=== PATIENT | male | born 1960 | race Caucasian/White ===

== ENCOUNTER 2022-04-15 19:05 | Outpatient (CLI) | payer OTHER | END 2022-04-15 19:06 | disposition critical access hospital (66) | LOC: EMS 19:05 | DX: M54.2 Cervicalgia (principal); V49.40XA Driver injured in collision with unspecified motor vehicles in traffic accident, initial encounter; Y92.413 State road as the place of occurrence of the external cause | CPT/HCPCS: A0425; A0427 ==

== ENCOUNTER 2022-04-15 19:39 | Emergency (ER) | payer OTHER ==
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
[2022-04-15 20:38] LABS: BASOPHILS % (AUTO) 0.5 %; EOSINOPHILS # (AUTO) 0.1 10^3/uL (0.0-0.7); EOSINOPHILS % (AUTO) 1.5 %; HCT - HEMATOCRIT 43.5 % (42.0-52.0); HGB - HEMOGLOBIN 14.1 g/dL (14.0-18.0); LYMPHOCYTES # (AUTO) 2.2 10^3/uL (1.5-3.5); LYMPHOCYTES % (AUTO) 26.2 %; MEAN CORPUSCULAR HEMOGLOBIN 29.1 pg (27.0-31.0); MEAN CORPUSCULAR HGB CONC 32.4 g/dL (32.0-36.0); MEAN CORPUSCULAR VOLUME 89.9 fL (80.0-94.0); MEAN PLATELET VOLUME 9.1 fL (7.4-11.4); MONOCYTES # (AUTO) 0.6 10^3/uL (0.0-1.0); MONOCYTES % (AUTO) 7.5 %; NEUTROPHILS # (AUTO) 5.5 10^3/uL (1.5-6.6); NEUTROPHILS % (AUTO) 63.6 %; PLT - PLATELET COUNT 198 10^3/uL (130-450); RED BLOOD COUNT 4.84 10^6/uL (4.70-6.10); RED CELL DISTRIBUTION WIDTH 13.2 % (12.0-15.0); WHITE BLOOD COUNT 8.6 x10^3/uL (4.8-10.8)
[2022-04-15 20:47] LABS: ALBUMIN 3.8 g/dL (3.2-5.5); ALBUMIN/GLOBULIN RATIO 1.1 (1.0-2.2); BILIRUBIN,TOTAL 0.5 mg/dL (0.2-1.0); CALCIUM 8.8 mg/dL (8.5-10.3); CREATININE 0.9 mg/dL (0.6-1.2); POTASSIUM 3.5 mmol/L (3.5-5.0); TOTAL PROTEIN 7.4 g/dL (6.7-8.2)
[2022-04-15] MEDS ORDERED: iohexoL-300 100 ML VIAL ONE (21:33)
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
[2022-04-16] MEDS ORDERED: MORPHINE 2 MG/ML CARPUJECT IVP STA (00:18)
[2022-04-16] MEDS ORDERED: CYCLOBENZAPRINE 10 MG TABLET PO STA (01:40)
[2022-04-16] MEDS ORDERED: HYDROmorphone 1 MG/ML CARPUJECT IVP STA (01:40)
[2022-04-16] MEDS ORDERED: oxyCODONE 5 MG TABLET PO STA (03:44)
[2022-04-16 05:50] VITALS: BP 188/84
[2022-04-16] MEDS ORDERED: oxyCODONE/ACET 5/325 Prepack 4 PO STA (06:06)
== END 2022-04-16 06:31 | disposition home or self-care (01) ==
LOC: EDUNIT# → ED 19:39
DX: S82.892A Other fracture of left lower leg, initial encounter for closed fracture (principal); R07.9 Chest pain, unspecified; V43.52XA Car driver injured in collision with other type car in traffic accident, initial encounter; W22.11XA Striking against or struck by driver side automobile airbag, initial encounter; Y92.410 Unspecified street and highway as the place of occurrence of the external cause; M50.30 Other cervical disc degeneration, unspecified cervical region
CPT/HCPCS: 36415; 70450; 71260; 72125; 73610; 74177; 80053; 83690; 85025; 93005; 96374; 96375; 99284; A9270; J1170; Q9967

== ENCOUNTER 2022-04-23 15:15 | Outpatient (CLI) | payer OTHER ==
--- NOTE | 2022-04-23 15:43 | XRAY Report ---
PROCEDURE: Ankle 3 View LT INDICATIONS: LEFT ANKLE PAIN TECHNIQUE: 3 views of the ankle were acquired. COMPARISON: X-ray left ankle, 04/15/2022. FINDINGS: Bones: There is no significant change in a small avulsion fragment adjacent to the fibular tip. Ankl e mortise is normally aligned. No suspicious bony lesions. Soft tissues: Small tibiotalar joint effusion. Achilles tendon appears normal. Mild soft tissue swe lling over the lateral malleolus. IMPRESSION: Stable small avulsion fracture of the fibular tip. Reviewed by: Gaye Kiser MD on 04/23/2022 3:42 PM PST Approved by: Gaye Kiser MD on 04/23/2022 3:42 PM PST Station ID: [id number]
--- NOTE | 2022-04-23 15:46 | XRAY Report ---
PROCEDURE: Foot 3 View LT INDICATIONS: LEFT FOOT PAIN TECHNIQUE: 3 views of the foot were acquired. COMPARISON: X-ray left ankle, 04/23/2022 and 04/15/2010 22. FINDINGS: Bones: No fractures or dislocations. No suspicious bony lesions. Gzbe-af-rcwysmix degenerative bunny nt disease at intertarsal joints, the first tarsometatarsal joint, the first metatarsophalangeal join t and multiple interphalangeal joints. Soft tissues: Small tibiotalar joint effusion. Achilles tendon appears normal. IMPRESSION: 1. No acute osseous abnormalities. 2. Gyjh-ue-vxozhphw degenerative joint disease. 3. Please see separate ankle x-ray report for small avulsion fracture of the lateral malleolus. Reviewed by: Gaye Kiser MD on 04/23/2022 3:44 PM PST Approved by: Gaye Kiser MD on 04/23/2022 3:44 PM PST Station ID: [id number]
== END 2022-04-23 15:16 | disposition home or self-care (01) ==
LOC: DI.WOS 15:15
PROVIDERS: ATTEND Physician Assistant Surgical
DX: S82.62XD Displaced fracture of lateral malleolus of left fibula, subsequent encounter for closed fracture with routine healing (principal); M19.072 Primary osteoarthritis, left ankle and foot

== ENCOUNTER 2022-06-16 15:51 | Outpatient (CLI) | payer OTHER ==
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
== END 2022-06-16 15:52 | disposition home or self-care (01) ==
LOC: DI.WOS 15:51
PROVIDERS: ATTEND Physician Assistant Surgical
DX: S82.62XD Displaced fracture of lateral malleolus of left fibula, subsequent encounter for closed fracture with routine healing (principal)

== ENCOUNTER 2022-08-16 12:01 | Outpatient (CLI) | payer OTHER ==
[2022-08-16 12:17] LABS: BASOPHILS % (AUTO) 0.4 %; EOSINOPHILS # (AUTO) 0.1 10^3/uL (0.0-0.7); EOSINOPHILS % (AUTO) 0.6 %; HCT - HEMATOCRIT 50.2 % (42.0-52.0); HGB - HEMOGLOBIN 16.1 g/dL (14.0-18.0); LYMPHOCYTES # (AUTO) 2.1 10^3/uL (1.5-3.5); LYMPHOCYTES % (AUTO) 21.9 %; MEAN CORPUSCULAR HEMOGLOBIN 28.8 pg (27.0-31.0); MEAN CORPUSCULAR HGB CONC 32.1 g/dL (32.0-36.0); MEAN CORPUSCULAR VOLUME 89.6 fL (80.0-94.0); MEAN PLATELET VOLUME 9.2 fL (7.4-11.4); MONOCYTES # (AUTO) 0.6 10^3/uL (0.0-1.0); MONOCYTES % (AUTO) 5.8 %; NEUTROPHILS # (AUTO) 6.8 10^3/uL (1.5-6.6); NEUTROPHILS % (AUTO) 70.8 %; PLT - PLATELET COUNT 264 10^3/uL (130-450); RED CELL DISTRIBUTION WIDTH 13.2 % (12.0-15.0); WHITE BLOOD COUNT 9.6 x10^3/uL (4.8-10.8)
[2022-08-16 13:37] LABS: ALKALINE PHOSPHATASE 81 IU/L (42-121); ALT ALANINE AMINOTRANSFERASE 13 IU/L (10-60); AST ASPARTATE AMINOTRANSFERASE 16 IU/L (10-42); BILIRUBIN,TOTAL 0.5 mg/dL (0.2-1.0); BUN - BLOOD UREA NITROGEN 21 mg/dL (6-20); CALCIUM 9.4 mg/dL (8.5-10.3); CARBON DIOXIDE - CO2 25 mmol/L (21-32); CHLORIDE 109 mmol/L (101-111); CHOL/HDL RATIO 4.7 (<5.0); CHOLESTEROL 200 mg/dL; GFR - MDRD 75 (>89); GLUCOSE 122 mg/dL (70-100); HDL CHOLESTEROL 43 mg/dL; LDL CHOLESTEROL,CALCULATED 138 mg/dL; LDL/HDL RATIO 3.2 (<3.6); SODIUM 142 mmol/L (135-145); TOTAL PROTEIN 7.9 g/dL (6.7-8.2); TRIGLYCERIDES 95 mg/dL; URIC ACID 8.3 mg/dL (2.6-7.2); VLDL CHOLESTEROL 19 mg/dL
[2022-08-18 00:07] LABS: HCV AB Non Reactive (Non Reactive)
== END 2022-08-16 12:02 | disposition home or self-care (01) ==
LOC: LAB 12:01
PROVIDERS: ATTEND Internal Medicine
DX: R03.0 Elevated blood-pressure reading, without diagnosis of hypertension (principal); M10.9 Gout, unspecified; L98.9 Disorder of the skin and subcutaneous tissue, unspecified; Z11.59 Encounter for screening for other viral diseases; Z72.0 Tobacco use
CPT/HCPCS: 36415; 80053; 80061; 83721; 84443; 84550; 85025; 86803

== ENCOUNTER 2022-08-16 12:08 | Outpatient (CLI) | payer OTHER ==
[2022-08-19 12:55] LABS: ESTIMATED AVERAGE GLUCOSE 105 mg/dL (70-100); HEMOGLOBIN A1c% 5.3 % (4.27-6.07)
== END 2022-08-16 23:59 | disposition home or self-care (01) ==
LOC: LAB.R 12:08
PROVIDERS: ATTEND Internal Medicine
DX: C44.91 Basal cell carcinoma of skin, unspecified (principal); R73.01 Impaired fasting glucose
CPT/HCPCS: 83036

== ENCOUNTER 2023-04-08 08:22 | Outpatient (CLI) | payer OTHER ==
--- NOTE | 2023-04-08 17:41 | CT Report ---
PROCEDURE: Low Dose Lung Cancer Screen INDICATIONS: TOBACCO USE TECHNIQUE: A CT scan of the chest was performed. Intravenous contrast media was not administered. Images were re corded and evaluated at appropriate window settings. Reformats: axial MIP of the chest, coronal and s agittal. For radiation dose reduction, the following was used: automated exposure control, adjustment of mA and/or kV according to patient size. COMPARISON: CT chest on April 15, 2022. FINDINGS: Image quality: Excellent. Prior cancer history: No. Lungs and pleura: No suspicious pulmonary nodule or consolidation. No pleural effusions. No pneumot horax. Mediastinum: Heart size is normal. No pericardial effusion. No large vessel abnormality. No mediastin al adenopathy by size criteria. Mild calcification of the thoracic aorta. Mild LAD coronary vessel c alcifications. Small hiatal hernia. Patent central airways. Chest wall and lower neck: Thyroid is unremarkable. No axillary or supraclavicular adenopathy by size . Bones: No acute fracture. No aggressive appearing lytic or blastic osseous lesion. Mild multilevel de generative changes of the spine. 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 Prev iously seen right adrenal nodule is excluded from the fwvtk-rb-ptid. IMPRESSION: 1. No suspicious pulmonary nodule or consolidation. Lung RAD: 1 - Negative. Recommendation: Continue annual screening in 12 Months with LDCT 2. Stable left adrenal nodule measuring 2.8 x 2.8 cm with Hounsfield unit of -22 compatible with a be nign lipid rich adenoma. Previously seen right adrenal nodule is excluded from nwekz-nl-naxm. 3. Mild LAD coronary vessel calcifications. Reviewed by: Yaneli Bardales MD on 04/08/2023 5:40 PM PDT Approved by: Yaneli Bardales MD on 04/08/2023 5:40 PM PDT Station ID: [id number]
== END 2023-04-08 08:23 | disposition home or self-care (01) ==
LOC: DI 08:22
PROVIDERS: ATTEND Internal Medicine
DX: Z12.2 Encounter for screening for malignant neoplasm of respiratory organs (principal); Z72.0 Tobacco use